=== PATIENT | female | born 1985 | race American Indian/Alaskan Native ===

== ENCOUNTER 2023-06-11 16:52 | Emergency (ER) | payer BC ==
[2023-06-11] MEDS: Ibuprofen 800 MG Tab PO ONE (17:42)
[2023-06-11 17:51] LABS: INFLUENZA A NAA NEGATIVE (NEGATIVE); INFLUENZA B NAA POSITIVE (NEGATIVE); RESPIRATORY SYNCYTIAL VIR NAA NEGATIVE (NEGATIVE)
[2023-06-11 17:52] LABS: CORONAVIRUS COVID-19 NAA NEGATIVE (NEGATIVE)
[2023-06-11] MEDS: Azithromycin 500 MG Tab PO ONE (19:10)
[2023-06-11] MEDS: Ondansetron 4 MG Tab.DIS PO ONE (19:10)
[2023-06-11] MEDS: Oseltamivir 75 MG Cap PO ONE (19:11)
== END 2023-06-11 19:17 | disposition home or self-care (01) ==
LOC: FB.ED 16:52
DX: J18.9 Pneumonia, unspecified organism (principal); J10.1 Influenza due to other identified influenza virus with other respiratory manifestations; I10 Essential (primary) hypertension; Z79.899 Other long term (current) drug therapy; Z90.49 Acquired absence of other specified parts of digestive tract; Z87.891 Personal history of nicotine dependence
CPT/HCPCS: 0241U; 71046; 99284; 99285; A9270; Q0162